=== PATIENT | male | born 1985 | race Caucasian/White ===

== ENCOUNTER 2021-01-08 00:10 | Emergency (ER) | payer OTHER ==
[2021-01-08] MEDS ORDERED: ILOTYCIN1 GM OD (01:27)
[2021-01-08] MEDS ORDERED: NORCO 5-325 TA1 EACH PO (01:27)
[2021-01-08] MEDS ORDERED: ACULAR LS20 DROP/ML OD (01:27)
== END 2021-01-08 01:45 | disposition home or self-care (01) ==
LOC: FER 00:10
DX: S05.01XA Injury of conjunctiva and corneal abrasion without foreign body, right eye, initial encounter (principal); I10 Essential (primary) hypertension; F17.210 Nicotine dependence, cigarettes, uncomplicated; W22.8XXA Striking against or struck by other objects, initial encounter
CPT/HCPCS: 90471; 90715